=== PATIENT | male | born 1985 | race African-American/Black ===

== ENCOUNTER 2017-05-01 22:16 | Emergency (ER) | payer OTHER ==
[~2017-05-01] VITALS: Ht 185.4 cm; Wt 79.0 kg
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
[2017-05-01] MEDS ORDERED: DIPHTH/TETANUS/ACEL PERTUSSIS (BOOSTER) 0.5 ML VIAL/PFS IM ONE (22:30)
[2017-05-01] MEDS ORDERED: MORPHINE SULFATE 4 MG/ML INJ IV PUSH ONE (22:30)
[2017-05-01] MEDS ORDERED: SODIUM CHLORIDE 0.9% FLUSH 10 ML FLUSH IVF PRN (22:30)
[2017-05-01] MEDS ORDERED: ONDANSETRON HCL 4 MG/2 ML VIAL IV PUSH ONE (22:30)
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
[2017-05-01 23:39] VITALS: BP 140/89; PULSE 84; RESP 20; TEMP 98.6; O2SAT 98
[2017-05-01 23:42] LABS: AUTOMATED NEUTROPHIL # 2.9 TH/MM3 (1.8-7.7); BASOPHIL % 0.5 % (0.0-2.0); EOSINOPHIL % 0.5 % (0.0-4.0); HEMATOCRIT 35.9 % (39.0-51.0); HEMOGLOBIN 12.5 GM/DL (13.0-17.0); LYMPH % 45.7 % (9.0-44.0); LYMPHOCYTE # 2.9 TH/MM3 (1.0-4.8); MEAN CORPUSCULAR HGB CONC 34.8 % (32.0-36.0); MEAN PLATELET VOLUME 8.4 FL (7.0-11.0); MONO % 7.5 % (0.0-8.0); MONOCYTE # 0.5 TH/MM3 (0-0.9); NEUT % 45.8 % (16.0-70.0); PLATELET COUNT 225 TH/MM3 (150-450); RED BLOOD COUNT 4.03 MIL/MM3 (4.50-5.90); RED CELL DISTRIBUTION WIDTH 11.4 % (11.6-17.2); WHITE BLOOD COUNT 6.3 TH/MM3 (4.0-11.0)
[2017-05-01 23:51] LABS: BICARBONATE 32.8 MEQ/L (21.0-32.0); CALCIUM 8.9 MG/DL (8.5-10.1)
[2017-05-01 23:55] LABS: CREATININE 1.2 MG/DL (0.60-1.30)
[2017-05-02] MEDS ORDERED: IOHEXOL 350 MG/ML 10 ML VIAL (for RAD DIAG) IVCONTRAST ONE (00:45)
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
[2017-05-02 01:00] VITALS: BP 138/79; PULSE 72; RESP 20; O2SAT 98
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
[2017-05-02] MEDS ORDERED: EMTR1TAB5 PO (02:00)
[2017-05-02] MEDS ORDERED: KETOROLAC TROMETHAMINE 30 MG/ML (IVP) VIAL IV PUSH ONE (02:15)
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
[2017-05-02 04:08] VITALS: RESP 18
== END 2017-05-02 04:58 | disposition home or self-care (01) ==
LOC: PHED 22:16
DX: S00.83XA Contusion of other part of head, initial encounter (principal); M79.651 Pain in right thigh; M54.2 Cervicalgia; V89.2XXA Person injured in unspecified motor-vehicle accident, traffic, initial encounter; Z23 Encounter for immunization
CPT/HCPCS: 70450; 72125; 72170; 73552; 74177; 80048; 85025; 90471; 90715; 96374; 96375; 99285; J1885; J2270; J2405; Q9967